=== PATIENT | female | born 1985 | race Caucasian/White ===

== ENCOUNTER 2017-07-26 23:43 | Inpatient (IN) | payer OTHER ==
[2017-07-27] MEDS ORDERED: ONDANSETRON 4 MG/2 ML VIAL IVPB ONE (00:25)
[2017-07-27] MEDS ORDERED: SODIUM CHLORIDE 1,000 ML IV STA (00:25)
[2017-07-27] MEDS ORDERED: morphine CARPU-JECT 4 MG/1 ML DISP.SYRIN IVPUSH ONE (00:25)
[2017-07-27] MEDS ORDERED: morphine CARPU-JECT 2 MG/1 ML DISP.SYRIN ONE (00:33)
[2017-07-27] MEDS ORDERED: ONDANSETRON 4 MG/2 ML VIAL ONE (00:33)
[2017-07-27] MEDS ORDERED: KETOROLAC TROMETHAMINE 30 MG/1 ML VIAL IVPUSH ONE (00:33)
--- NOTE | 2017-07-27 00:34 | PDOC ---
History of Present Illness - General Chief Complaint: Pain, Acute Stated Complaint: PAIN, ACUTE Time Seen by Provider: 07/27/17 00:15 History Source: Patient Exam Limitations: No Limitations - History of Present Illness Initial Comments: 07/27/17 00:28 Patient is a 31F with history of asthma here today complaining of bilateral flank pain, left more than right. She states that three weeks ago, she went to an urgent care for a similar type of pain where she was diagnosed with pyelonephritis on the right side and discharged with cipro. Symptoms improved, but they came back starting yesterday with pain. She went to urgent care again, where she was prescribed cefdinir. She was never imaged. Patient presented to the ED after pain worsened and she became nauseous. She endorses fever and chills. Denies vomiting. Pain gets worse with inspiration. LMP 3 weeks ago. Past History - Past Medical History Allergies/Adverse Reactions: Allergies Allergy/AdvReac Type Severity Reaction Status Date / Time No Known Allergies Allergy Verified 07/27/17 00:12 - Suicide/Smoking/Psychosocial Hx Smoking History: Never smoked Review of Systems - Review of Systems Comments:: 07/27/17 00:37 GENERAL/CONSTITUTIONAL: Positive for fevers and chills. No weakness. HEAD, EYES, EARS, NOSE AND THROAT: No change in vision. No ear pain or discharge. No sore throat. CARDIOVASCULAR: No chest pain or shortness of breath RESPIRATORY: No cough, wheezing, or hemoptysis. GASTROINTESTINAL: Positive for nausea. Negative for vomiting, diarrhea or constipation. GENITOURINARY: No dysuria, frequency, or change in urination. MUSCULOSKELETAL: No joint or muscle swelling or pain. No neck or back pain. SKIN: No rash NEUROLOGIC: No headache, vertigo, loss of consciousness, or change in strength/ sensation. ENDOCRINE: No increased thirst. No abnormal weight change ALLERGIC/IMMUNOLOGIC: No hives or skin allergy. *Physical Exam - Vital Signs Last Vital Signs Temp Pulse Resp BP Pulse Ox 98.3 F 85 18 126/83 99 07/27/17 00:12 07/27/17 00:12 07/27/17 00:12 07/27/17 00:12 07/27/17 00:12 - Physical Exam Comments: 07/27/17 00:45 GENERAL: Awake, alert, and fully oriented, in no acute distress HEAD: No signs of trauma, normocephalic, atraumatic EYES: PERRLA, EOMI, sclera anicteric, conjunctiva clear ENT: Auricles normal inspection, hearing grossly normal, nares patent, oropharynx clear without exudates. Moist mucosa LUNGS: No distress, speaks full sentences, clear to auscultation bilaterally HEART: Regular rate and rhythm, normal S1 and S2, no murmurs, rubs or gallops, peripheral pulses normal and equal bilaterally. ABDOMEN: Soft, nontender, normoactive bowel sounds. No guarding, no rebound. No masses. BACK: Positive CVA tenderness, left more than right. EXTREMITIES: Normal inspection, Normal range of motion, no edema. No clubbing or cyanosis. NEUROLOGICAL: Cranial nerves II through XII grossly intact. Normal speech, no focal sensorimotor deficits ED Treatment Course - LABORATORY CBC & Chemistry Diagram: 07/27/17 00:26 07/27/17 00:26 - RADIOLOGY Radiology Studies Ordered: Category Date Time Status ABDOMEN & PELVIS CT W/O CONTR [CT] Stat CT Scan 07/27/17 00:26 Ordered Medical Decision Making - Medical Decision Making 07/27/17 00:46 Patient is 31F with history of asthma and prior pyelo here today with flank pain. Vital signs stable in triage. Tachycardic to 100 on my exam. Afebrile, vital signs otherwise normal and stable. Believe that this patient has failed outpatient treatment. Will evaluate with abdominal labs, ct w/o contrast, ua, and upreg. Will treat with fluids, 1L NS, morphine and, once upreg is neg, toradol. 07/27/17 01:39 Laboratory Tests 07/27/17 07/27/17 07/27/17 00:26 00:26 01:16 WBC 10.5 H Hgb 12.5 Hct 36.6 Plt Count 226 BUN 8 Creatinine 0.8 Urine WBC 261 CBC shows leukocytosis, kidney function normal, ua shows 261 WBCs, upreg neg. Patient is no longer tachycardic after pain control. 07/27/17 03:09 CT shows mild right sided ureteral distention, no hydronephrosis or renal stone. Will admit to hospitalist for IV antibiotics. 07/27/17 03:23 Spoke with TOM Escobar. Will admit to [facility]. *DC/Admit/Observation/Transfer Diagnosis at time of Disposition: Pyelonephritis - Discharge Dispostion Condition at time of disposition: Stable Admit: Yes
--- NOTE | 2017-07-27 00:35 | PDOC ---
Attending Attestation - Resident Resident Name: Luis E Rosado - ED Attending Attestation I have performed the following: I have examined & evaluated the patient, The case was reviewed & discussed with the resident, I agree w/resident's findings & plan, Exceptions are as noted - HPI HPI: 07/27/17 00:33 recurrent flank after being treated several weeks ago. Pt c/o subjective fever. - Physicial Exam PE: 07/27/17 00:33 *Physical Exam General Appearance: Yes: Appropriately Dressed. No: Apparent Distress, Intoxicated HEENT: positive: EOMI, RAMON, Normal ENT Inspection, Normal Voice, TMs Normal, Pharynx Normal. negative: Pale Conjunctivae, Photophobia, Scleral Icterus (R), Scleral Icterus (L) Neck: positive: Trachea midline, Normal Thyroid, Supple. negative: Tender, Rigid, Carotid bruit, Stridor, Lymphadenopathy (R), Lymphadenopathy (L), Thyromegaly Respiratory/Chest: positive: Lungs Clear, Normal Breath Sounds. negative: Chest Tender, Respiratory Distress, Accessory Muscle Use, Labored Respiration, RES, Crackles, Rales, Rhonchi, Stridor, Wheezing, Dullness Cardiovascular: positive: Regular Rhythm, Regular Rate, S1, S2. negative: Edema , JVD, Murmur, Bradycardia, Tachycardia Vascular Pulses: Dorsalis-Pedis (R): 2+, Doralis-Pedis (L): 2+ Gastrointestinal/Abdominal: positive: Normal Bowel Sounds, Flat, Soft. negative : Tender, Organomegaly, Pulsatile Mass, Increased Bowel Sounds, Decreased BS, Distended, Guarding, Rebound, Hernia, Hepatomegaly, Spleenomegaly Lymphatic: negative: Adenopathy, Tenderness Musculoskeletal: positive: Normal Inspection. negative: CVA Tenderness, Decreased Range of Motion Extremity: positive: Normal Capillary Refill, Normal Inspection, Normal Range of Motion, Pelvis Stable. negative: Tender, Pedal Edema, Swelling, Erythema Integumentary: positive: Normal Color, Dry, Warm. negative: Cyanotic, Erythema , Jaundice, Rash Neurologic: positive: gusset edger II-XII NML intact, Fully Oriented, Alert, Normal Mood/ Affect, Motor Strength 5/5. negative: EOM Palsy, Facial Droop, Sensory Deficit - Medical Decision Making 07/27/17 19:30 Pt admitted for Pyleonephritis and UTI
[2017-07-27 00:53] LABS: BASOPHIL 0.8 % (0-2.0); EOSINOPHIL 2.2 % (0-4.5); MCH 29.8 pg (25.7-33.7); MCHC 34.1 g/dl (32.0-36.0); MEAN CELL VOLUME 87.4 fl (80-96); MEAN PLT VOLUME 8.7 fl (7.5-11.1); NEUTROPHILS 76.8 % (42.8-82.8); PLATELET COUNT 226 K/MM3 (134-434); RDW 12.2 % (11.6-15.6); WHITE BLOOD COUNT 10.5 K/mm3 (4.0-10.0)
[2017-07-27 01:27] LABS: URINE APPEARANCE SLCLOUDY; URINE BILIRUBIN NEGATIVE (NEGATIVE); URINE BLOOD 2+ (NEGATIVE); URINE COLOR LTYELLOW; URINE GLUCOSE (UA) NEGATIVE (NEGATIVE); URINE KETONE NEGATIVE (NEGATIVE); URINE NITRITE NEGATIVE (NEGATIVE); URINE UROBILINOGEN NEGATIVE mg/dL (0.2-1.0)
[2017-07-27 01:28] LABS: URINE LEUK ESTERASE 3+ (NEGATIVE); URINE PROTEIN 1+ (NEGATIVE)
[2017-07-27 01:30] LABS: URINE MUCUS RARE; URINE RBC 15 /hpf (0-3); URINE WBC 261 /hpf (3-5)
[2017-07-27 01:30] LABS: ALBUMIN 3.8 g/dl (3.4-5.0); ANION GAP 10 (8-16); BILIRUBIN,TOTAL 0.4 mg/dL (0.2-1.0); CALCIUM 8.7 mg/dL (8.5-10.1); CO2 26 mmol/L (21-32); CREATININE 0.8 mg/dL (0.55-1.02); GLUCOSE,RANDOM 104 mg/dL (74-106); SGOT/AST 10 U/L (15-37); SGPT/ALT 18 U/L (12-78); TOT PROT 6.9 g/dl (6.4-8.2)
[2017-07-27 01:31] LABS: ALK PHOS 60 U/L (45-117)
[2017-07-27] MEDS ORDERED: CEFTRIAXONE 1 GM in DEXTROSE 5%-WATER - 50 ML IVPB ONE (01:42)
--- NOTE | 2017-07-27 03:39 | HP ---
CHIEF COMPLAINT: Flank Pain, Nausea PCP: Dr. Rubi Martinez HISTORY OF PRESENT ILLNESS: This is a 31 y/o woman with a past medical history of Asthma. Who presents to the ED with bilateral flank pain. Patient reports being seen by an Urgent Care facility x2 occasions (3 weeks ago then 07/26) treated with Cipro for pyelonephritis. Patient reports the flank pain worsened yesterday, she went to and was started on Cefepime. Patient reports subjective fever at home. Patient denies dysuria, frequency, hesitancy, burning. Patient denies chills, cough, dizziness, SOB, CP, V/D, constipation. 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 [employer] Family History: Father: HTN, HLD Paternal Aunt: Renal Cell Ca, Maternal Grandmother: ?Ovarian/Vaginal Ca, Allergies No Known Allergies Allergy (Verified 07/27/17 00:12) HOME MEDICATIONS: REVIEW OF SYSTEMS CONSTITUTIONAL: fever Absent: chills, diaphoresis, generalized weakness, malaise, loss of appetite, weight change HEENT: Absent: rhinorrhea, nasal congestion, throat pain, throat swelling, difficulty swallowing, mouth swelling, ear pain, eye pain, visual changes CARDIOVASCULAR: Absent: chest pain, syncope, palpitations, irregular heart rate, lightheadedness , peripheral edema RESPIRATORY: Absent: cough, shortness of breath, dyspnea with exertion, orthopnea, wheezing, stridor, hemoptysis GASTROINTESTINAL: nausea Absent: abdominal pain, abdominal distension, vomiting, diarrhea, constipation, melena, hematochezia GENITOURINARY: bilateral flank pain Absent: dysuria, frequency, urgency, hesitancy, hematuria, genital pain MUSCULOSKELETAL: Absent: myalgia, arthralgia, joint swelling, back pain, neck pain SKIN: Absent: rash, itching, pallor HEMATOLOGIC/IMMUNOLOGIC: Absent: easy bleeding, easy bruising, lymphadenopathy, frequent infections ENDOCRINE: Absent: unexplained weight gain, unexplained weight loss, heat intolerance, cold intolerance NEUROLOGIC: Absent: headache, focal weakness or paresthesias, dizziness, unsteady gait, seizure, mental status changes, bladder or bowel incontinence PSYCHIATRIC: Absent: anxiety, depression, suicidal or homicidal ideation, hallucinations. PHYSICAL EXAMINATION GENERAL: Awake, alert, and fully oriented, in no acute distress. HEAD: Normal with no signs of trauma. EYES: Pupils equal, round and reactive to light, extraocular movements intact, sclera anicteric, conjunctiva clear. No lid lag. EARS, NOSE, THROAT: Ears normal, nares patent, oropharynx clear without exudates. Moist mucous membranes. NECK: Normal range of motion, supple without lymphadenopathy, JVD, or masses. LUNGS: Breath sounds equal, clear to auscultation bilaterally. No wheezes, and no crackles. No accessory muscle use. HEART: Regular rate and rhythm, normal S1 and S2 without murmur, rub or gallop. ABDOMEN: LUQ tenderness, soft, not distended, normoactive bowel sounds, no guarding, no rebound, no masses. No hepatomegaly or splenomegaly. MUSCULOSKELETAL:+ Bilateral CVA L>R tenderness. Normal range of motion at all joints. No bony deformities or tenderness. UPPER EXTREMITIES: 2+ pulses, warm, well-perfused. No cyanosis. No clubbing. No peripheral edema. LOWER EXTREMITIES: 2+ pulses, warm, well-perfused. No calf tenderness. No peripheral edema. NEUROLOGICAL: Cranial nerves II-XII intact. Normal speech. Normal gait. PSYCHIATRIC: Cooperative. Good eye contact. Appropriate mood and affect. SKIN:Tattoos, warm, dry, normal turgor, no rashes or lesions noted, normal capillary refill. Laboratory Results - last 24 hr 07/27/17 07/27/17 07/27/17 00:26 00:26 01:16 WBC 10.5 H RBC 4.19 Hgb 12.5 Hct 36.6 MCV 87.4 MCH 29.8 MCHC 34.1 RDW 12.2 Plt Count 226 MPV 8.7 Neutrophils % 76.8 Lymphocytes % 12.4 Monocytes % 7.8 Eosinophils % 2.2 Basophils % 0.8 Sodium 140 Potassium 3.7 Chloride 104 Carbon Dioxide 26 Anion Gap 10 BUN 8 Creatinine 0.8 Creat Clearance w eGFR > 60 Random Glucose 104 Lactic Acid Calcium 8.7 Total Bilirubin 0.4 AST 10 L ALT 18 Alkaline Phosphatase 60 Total Protein 6.9 Albumin 3.8 Lipase 167 Urine Color Ltyellow Urine Appearance Slcloudy Urine pH 6.0 Urine Protein 1+ H Urine Glucose (UA) Negative Urine Ketones Negative Urine Blood 2+ H Urine Nitrite Negative Urine Bilirubin Negative Urine Urobilinogen Negative Urine RBC 15 Urine WBC 261 Ur Epithelial Cells Rare Urine Mucus Rare Urine HCG, Qual 07/27/17 07/27/17 01:16 03:38 WBC RBC Hgb Hct MCV MCH MCHC RDW Plt Count MPV Neutrophils % Lymphocytes % Monocytes % Eosinophils % Basophils % Sodium Potassium Chloride Carbon Dioxide Anion Gap BUN Creatinine Creat Clearance w eGFR Random Glucose Lactic Acid 1.1 Calcium Total Bilirubin AST ALT Alkaline Phosphatase Total Protein Albumin Lipase Urine Color Urine Appearance Urine pH Urine Protein Urine Glucose (UA) Urine Ketones Urine Blood Urine Nitrite Urine Bilirubin Urine Urobilinogen Urine RBC Urine WBC Ur Epithelial Cells Urine Mucus Urine HCG, Qual Negative ASSESSMENT/PLAN: This is a 31 y/o woman with a PMHx of Asthma. Admitted for Acute Uncomplicated Pyelonephritis for further evaluation of their emergent condition. Plan: FEN -NS@83ml/hr -Replete lytes prn -Regular Diet Code Status: Full Code Dispo: Requires Inpatient Care Problem List - Problem (1) Pyelonephritis Assessment/Plan: - Failed Outpatient Antibiotic Therapy - CTAP- reviewed - UA- +261 WBC, +1Protein, +2Blood - Mild leukocytosis, lactic acid- 1.1 (post NS bolus) - Urine Culture-pending - Blood Culture- pending - Ceftriaxone given in ED, will continue for Uncomplicated Pyelonephritis, pending culture report - Continue IVF - Repeat CBC, BMP tomorrow - Pain Mgmt- Tylenol/Toradol prn - Zofran prn - Monitor vitals Code(s): N12 - TUBULO-INTERSTITIAL NEPHRITIS, NOT SPCF ACUTE OR CHRONIC (2) Asthma Assessment/Plan: - Well controlled - Pro Air MDI prn Code(s): J45.909 - UNSPECIFIED ASTHMA, UNCOMPLICATED (3) DVT prophylaxis Assessment/Plan: - OOB - SCDs Code(s): LRY7811 - Visit type - Emergency Visit Emergency Visit: Yes ED Registration Date: 07/27/17 Care time: The patient presented to the Emergency Department on the above date and was hospitalized for further evaluation of their emergent condition. - New Patient This patient is new to me today: Yes Date on this admission: 07/27/17 - Critical Care Critical Care patient: No
[2017-07-27] MEDS ORDERED: KETOROLAC TROMETHAMINE 15 MG/ML VIAL IVPUSH PRN ×2 (04:09→04:58)
[2017-07-27] MEDS ORDERED: ACETAMINOPHEN 325 MG TABLET (FP) PO PRN (04:11)
[2017-07-27] MEDS ORDERED: SODIUM CHLORIDE 1,000 ML IV SCH (04:15)
[2017-07-27 05:01] VITALS: BMI 21.3
[2017-07-27] MEDS ORDERED: ALBUTEROL SO4 18 GM HFA INHALER IH PRN (05:27)
--- NOTE | 2017-07-27 08:13 | PN ---
Physical Exam: SUBJECTIVE: Patient seen and examined at bedside. Patient states she feels better today. No new complaints. OBJECTIVE: Vital Signs Period Temp Pulse Resp BP Sys/Turner Pulse Ox Last 24 Hr 98 F 78 20 110/70 99 GENERAL: The patient is awake, alert, and fully oriented, in no acute distress. HEAD: Normal with no signs of trauma. EYES: extraocular movements intact, sclera anicteric, conjunctiva clear. No ptosis. NECK: Trachea midline, full range of motion, supple. LUNGS: Breath sounds equal, clear to auscultation bilaterally, no wheezes, no crackles, no accessory muscle use. HEART: Regular rate and rhythm, S1, S2 without murmur, rub or gallop. ABDOMEN: Soft, nontender, nondistended, normoactive bowel sounds, no guarding, no rebound, no hepatosplenomegaly, no masses. No CVA tenderness EXTREMITIES: 2+ pulses, warm, well-perfused, no edema. NEUROLOGICAL: Cranial nerves II through X grossly intact. Normal speech, gait not observed. PSYCH: Normal mood, normal affect. SKIN: Warm, dry, normal turgor, no rashes or lesions noted Laboratory Results - last 24 hr 07/27/17 03:38 Lactic Acid 1.1 Active Medications Generic Name Dose Route Start Last Admin Trade Name Freq PRN Reason Stop Dose Admin Acetaminophen 650 mg 07/27/17 04:11 Tylenol - PO Q6H PRN FEVER OR PAIN Albuterol Sulfate 2 puff 07/27/17 05:27 Ventolin Hfa Inhaler - IH Q4H PRN SHORT OF BREATH/WHEEZING Sodium Chloride 1,000 mls @ 83 mls/hr 07/27/17 04:15 07/27/17 05:00 Normal Saline - IV 83 mls/hr ASDIR JACKY Administration Ceftriaxone Sodium 1 gm/ 50 mls @ 100 mls/hr 07/28/17 08:00 Dextrose IVPB DAILY JACKY Ketorolac Tromethamine 30 mg 07/27/17 04:58 Toradol Injection - IVPUSH 08/01/17 04:08 Q6H PRN PAIN ASSESSMENT/PLAN: This is a 31 y/o woman with a PMHx of Asthma who presente tot ED c/o b/l back and flank pain. Patient failed outpatient treatment with cipro and cefipime and is admitted for Acute Uncomplicated Pyelonephritis. # Back and flank pain 2/2 Pyelonephritis -Failed Outpatient Antibiotic Therapy -UA- +261 WBC, +1Protein, +2Blood -Ucx, Bcx pending -Ceftriaxone 1g daily (day 1) -IVF -Tylenol/Toradol prn pain -Zofran prn # Asthma- controlled -Pro Air MDI prn #FEN -NS@83ml/hr -monitor lytes -Regular Diet- # prophylaxis -OOB -SCDs for DVT prophy -no indication for GI prophy #Dispo -admitted to med surg for IV ABX Visit type - Emergency Visit Emergency Visit: Yes ED Registration Date: 07/27/17 Care time: The patient presented to the Emergency Department on the above date and was hospitalized for further evaluation of their emergent condition. - New Patient This patient is new to me today: Yes Date on this admission: 07/27/17 - Critical Care Critical Care patient: No
--- NOTE | 2017-07-27 13:09 | PN ---
Teaching Attending Note Name of Resident: Gregg Resendez ATTENDING PHYSICIAN STATEMENT I saw and evaluated the patient. I reviewed the resident's note and discussed the case with the resident. I agree with the resident's findings and plan as documented. SUBJECTIVE:continues to have some flank pain but overall improved. states she was on cipro for 7 days which she didnt improve with and was given ceftin the day prior to arrival which she took for only day. denies CP, SOB, fever, chills , N/V/C/D, dysuria, hematuria OBJECTIVE: Last Vital Signs Temp Pulse Resp BP Pulse Ox 98.4 F 87 17 128/87 99 07/27/17 10:29 07/27/17 10:29 07/27/17 10:07/27/17 10:07/27/17 04:00 General NAD +flushed CV S1 S2 RRR no murmur/rub/gallop Lungs CTA B/L no wheezing/rales/rhonchi Abdomen soft NT/ ND + R CVA tenderness ASSESSMENT AND PLAN: 31yo F wtih PMH asthma presented to the ER with B/L flank pain for 1 week who failed outpatient abx treatment 1. Acute pyelonephritis- slightly flushed but states she feels better. On Ceftriaxone day 1. will f/u UCx although likely to be negative given previous abx treamtent. d/c IVF as tolerating diet and does not appear septic. pain and nausea control 2. asthma- no signs of acute exacerbation 3. DVT ppx- EAM
--- NOTE | 2017-07-27 14:59 | PDOC ---
Patient Follow-up (Call Back) - Post ED Follow - Up Condition at time of discharge: Stable Reason for Call Back: Radiology (Received call from Dr.Woroch jones to patient' s CT abdomen and pelvis without contrast due to him noticing that there was some mild asymmetric thickening of the descending mesocolon and focal [place] naris of the fat adjacent to the sigmoid colon. The etiology of these mild inflammatory changes is not clearly delineated on this noncontrast CT. Primary differential considerations include acute epiploic appendagitis and mild uncomlicated siigmoid diverticulitis. He is correlate clinically patient was admitted to [facility]. called spoke with nurse Bev Burgess RN she will notify Dr. Tsai of additional findings.)
[2017-07-28] MEDS ORDERED: CEFTRIAXONE 1 GM in DEXTROSE 5%-WATER - 50 ML IVPB SCH (08:00)
[2017-07-28 08:08] LABS: BASOPHIL 1.8 % (0-2.0); EOSINOPHIL 7.1 % (0-4.5); MCH 29.3 pg (25.7-33.7); MCHC 32.9 g/dl (32.0-36.0); NEUTROPHILS 42.2 % (42.8-82.8); PLATELET COUNT 209 K/MM3 (134-434); RDW 12.4 % (11.6-15.6); WHITE BLOOD COUNT 5.5 K/mm3 (4.0-10.0)
[2017-07-28] MEDS ORDERED: cefTRIAXone SODIUM 1 GM VIAL ONE (08:17)
[2017-07-28] MEDS ORDERED: DEXTROSE 5%-WATER - 50 ML IVPB ONE (08:17)
[2017-07-28 08:30] LABS: ALBUMIN 3.3 g/dl (3.4-5.0); ANION GAP 8 (8-16); CALCIUM 8.1 mg/dL (8.5-10.1); CO2 25 mmol/L (21-32); GLUCOSE,RANDOM 79 mg/dL (74-106); MAGNESIUM 2.2 mg/dL (1.8-2.4)
[2017-07-28 08:35] LABS: ALK PHOS 54 U/L (45-117); BILIRUBIN,TOTAL 0.3 mg/dL (0.2-1.0); CREATININE 0.7 mg/dL (0.55-1.02); PHOSPHOROUS 3.9 mg/dL (2.5-4.9); SGOT/AST 13 U/L (15-37); SGPT/ALT 17 U/L (12-78); TOT PROT 6.2 g/dl (6.4-8.2)
[2017-07-28] MEDS ORDERED: LACTOBACILLUS ACIDOPHILUS 1 EACH TAB (FP) PO SCH (10:00)
[2017-07-28] MEDS ORDERED: CEFTRIAXONE 1 GM in DEXTROSE 5%-WATER - 100 ML IVPB SCH (10:00)
--- NOTE | 2017-07-28 12:58 | PN ---
Teaching Attending Note Name of Resident: Gregg Resendez ATTENDING PHYSICIAN STATEMENT I saw and evaluated the patient. I reviewed the resident's note and discussed the case with the resident. I agree with the resident's findings and plan as documented. SUBJECTIVE:asymptomatic. has some urinary frequency still but much improved. denies CP, SOB< fever, chills, N/V/C/D requesting to go home. OBJECTIVE: Last Vital Signs Temp Pulse Resp BP Pulse Ox 97.7 F 92 H 18 120/75 98 07/28/17 09:15 07/28/17 09:15 07/28/17 09:15 07/28/17 09:15 07/28/17 09:00 General NAD Abdomen soft NT/ ND ASSESSMENT AND PLAN: 31yo F wtih PMH asthma presented to the ER with B/L flank pain for 1 week who failed outpatient abx treatment 1. Acute pyelonephritis-clinically improved. CT abdomen reading showing epilopic appendigitis which is likley incidental finding and pt is improving on ceftrixone. today is Day 2. BCx NGTD. if UCx reports as negative will d/c home on bactrim for 14 day course total. pain and nausea control. encouraged need to f/u PMD 2. asthma- no signs of acute exacerbation 3. DVT ppx- EAM
[2017-07-28 14:05] VITALS: BP 113/61; PULSE 72; TEMP 98
--- NOTE | 2017-07-28 21:36 | DS ---
Physical Exam: SUBJECTIVE: Patient seen and examined at bedside. He states she feel much better today and is almost back to baseline. No fevers overnight. OBJECTIVE: Vital Signs Period Temp Pulse Resp BP Sys/Turner Pulse Ox Last 24 Hr 97.7 F-98.4 F 71-92 18-20 106-120/61-75 98 PHYSICAL EXAM GENERAL: The patient is awake, alert, and fully oriented, in no acute distress. HEAD: Normal with no signs of trauma. EYES: extraocular movements intact, sclera anicteric, conjunctiva clear. NECK: Trachea midline, full range of motion, supple. LUNGS: Breath sounds equal, clear to auscultation bilaterally, no wheezes, no crackles, no accessory muscle use. HEART: Regular rate and rhythm, S1, S2 without murmur, rub or gallop. ABDOMEN: Soft, nontender, nondistended, normoactive bowel sounds, no guarding, no rebound, no hepatosplenomegaly, no masses. Mild CVA tenderness on the left; improved since yesterday EXTREMITIES: 2+ pulses, warm, well-perfused, no edema. NEUROLOGICAL: Cranial nerves II through X grossly intact. Normal speech, gait not observed. PSYCH: Normal mood, normal affect. SKIN: Warm, dry, normal turgor, no rashes or lesions noted. LABS Laboratory Results - last 24 hr 07/28/17 07/28/17 06:30 06:30 WBC 5.5 D RBC 3.86 Hgb 11.3 Hct 34.4 MCV 89.0 MCH 29.3 MCHC 32.9 RDW 12.4 Plt Count 209 MPV 9.0 Neutrophils % 42.2 L D Lymphocytes % 42.0 H D Monocytes % 6.9 Eosinophils % 7.1 H D Basophils % 1.8 Sodium 140 Potassium 4.1 Chloride 107 Carbon Dioxide 25 Anion Gap 8 BUN 8 Creatinine 0.7 Creat Clearance w eGFR > 60 Random Glucose 79 D Calcium 8.1 L Phosphorus 3.9 Magnesium 2.2 Total Bilirubin 0.3 D AST 13 L D ALT 17 Alkaline Phosphatase 54 Total Protein 6.2 L Albumin 3.3 L HOSPITAL COURSE: Date of Admission:07/27/17 The patient is a 31 yo f w/ PMH asthma who presented to the ED c/o b/l flank pain for the past 3 weeks. SHe was treated with both cipro and cefipime as an outpatient without resolution of symptoms. In the ED, She was found to have a leukocytosis and a u/a showing pyuria and microscopic hematuria. She was admitted for the treatment of pyelonephritis. She was treated with ceftriaxone, zofran, tylenol and toradol. A urine culture showed no growth. She improved clinically and was discharged on Bactrim DS BID for 12 more days to complete a 2 week course of antibiotics. She was encouraged to follow up with her PCP within one week of going home. Date of Discharge: 07/28/17 Minutes to complete discharge: 20 Discharge Summary Reason For Visit: PYELONEPHRITIS Current Active Problems Asthma (Acute) DVT prophylaxis (Acute) Pyelonephritis (Acute) Condition: Improved - Instructions Diet, Activity, Other Instructions: You were admitted for an infection in your kidneys. You are being sent home with antibiotic to help fight the infection. This medication is called Bactrim. You should take this medication twice per day for the next 12 days. Please take all your medication as directed, even if you feel better. You should follow up with your PCP within one week of going home. If you feel fever, chills, worsening abdominal or back pain or if any of your symptoms get worse, please call your doctor or return to the ED. Referrals: Rubi Hansen [Primary Care Provider] - Disposition: HOME - Home Medications Comprehensive Discharge Medication List: Ambulatory Orders Norethindrone AC-Eth Estradiol [Junel 1 mg-20 Mcg Tablet] 1 each PO DAILY Sulfamethoxazole/Trimethoprim [Bactrim Ds -] 1 tab PO BID #24 tablet 07/28/17 This patient is new to me today: No Emergency Visit: Yes ED Registration Date: 07/27/17 Care time: The patient presented to the Emergency Department on the above date and was hospitalized for further evaluation of their emergent condition. Critical Care patient: No - Discharge Referral Referred to [facility] Med P.C[facility] No
== END 2017-07-28 17:16 | disposition home or self-care (01) | DRG 463 ==
LOC: JER 23:43 → JERBED 07-27 03:24 → J7W 07-27 04:22
PROVIDERS: ADMIT Internal Medicine; ATTEND Internal Medicine
DX: N10 Acute pyelonephritis (principal); J45.909 Unspecified asthma, uncomplicated
CPT/HCPCS: 36415; 74176-TC; 80048; 80053; 81003; 81015; 83605; 83690; 83735; 84100; 84703; 85025; 87040; 87086; 99284-25

== ENCOUNTER 2023-06-30 19:48 | Emergency (ER) | payer BC, OTHER ==
[2023-06-30 19:52] VITALS: RESP 18; BMI 22.3
[2023-06-30 22:01] VITALS: BP 116/65; PULSE 72; TEMP 97.9
== END 2023-06-30 22:42 | disposition home or self-care (01) ==
LOC: JER 19:48
DX: O99.891 Other specified diseases and conditions complicating pregnancy (principal); M25.512 Pain in left shoulder; R68.84 Jaw pain; M79.10 Myalgia, unspecified site; Z3A.24 24 weeks gestation of pregnancy
CPT/HCPCS: 93005; 93010; 99283-25